=== PATIENT | female | born 1970 | race Hispanic/Latino ===

== ENCOUNTER 2017-08-26 16:46 | Emergency (ER) | payer BC ==
[2017-08-26 16:46] VITALS: BMI 26.7
[2017-08-26] MEDS ORDERED: Sodium Chloride 0.9% 1,000 ML IV STA (17:31)
--- NOTE | 2017-08-26 17:34 | ED PDOC ---
HPI: Abdomen Time Seen by Provider: 08/26/17 17:31 Chief Complaint (Nursing): Abdominal Pain Chief Complaint (Provider): abdominal pain History Per: Patient (46 y/o female here with abdominal pain albert-umbilical today after eating spread today. Patient forced herself to vomit. Notes mild improvement of abdominal pain since arriving to ED. Has had similar episodic abdominal pain in past over many years. Has had endoscopy noting mild reflux/ gastritis. Has had cholecystectomy for treatment of pain (gallbladder sludge). Otherwise has had Csxn/appendectomy in past. ) Past Medical History Reviewed: Historical Data, Nursing Documentation, Vital Signs Vital Signs: Last Vital Signs Temp 98 F 08/26/17 19:16 Pulse 72 08/26/17 19:16 Resp 20 08/26/17 19:16 BP 110/71 08/26/17 19:16 Pulse Ox 99 08/28/17 18:00 - Medical History PMH: Hypothyroidism, Pancreatitis Denies: Chronic Kidney Disease - Surgical History Surgical History: Appendectomy, - Family History Family History: States: No Known Family Hx - Home Medications Home Medications: Ambulatory Orders Medication Instructions Recorded Levothyroxine [Synthroid] 112 mcg PO DAILY 08/04/16 Multivit/Folic Acid/I 0 mg PO DAILY 08/04/16 [] Ursodiol 500 mg PO BID 08/04/16 Docusate Sodium [Colace] 100 mg PO BID #20 capsule 08/26/17 Phosphate Enema [Fleet Enema 135 135 ml RC ONCE PRN #1 nma 08/26/17 Ml] - Allergies Allergies/Adverse Reactions: Allergies Allergy/AdvReac Type Severity Reaction Status Date / Time Sulfa (Sulfonamide Allergy SWELLING Verified 08/26/17 16:55 Antibiotics) Review of Systems ROS Statement: Except As Marked, All Systems Reviewed And Found Negative Gastrointestinal: Positive for: Abdominal Pain Physical Exam - Reviewed Nursing Documentation Reviewed: Yes Vital Signs Reviewed: Yes - Physical Exam Appears: Positive for: Well, Non-toxic, No Acute Distress Head Exam: Positive for: ATRAUMATIC, NORMAL INSPECTION, NORMOCEPHALIC Skin: Positive for: Normal Color, Warm, DRY Eye Exam: Positive for: EOMI, Normal appearance, PERRL ENT: Positive for: Normal ENT Inspection Neck: Positive for: Normal, Painless ROM Cardiovascular/Chest: Positive for: Regular Rate, Rhythm Respiratory: Positive for: CNT, Normal Breath Sounds Gastrointestinal/Abdominal: Positive for: Normal Exam, Bowel Sounds ( hyperactive bowel sounds normal pitch), Soft Back: Positive for: Normal Inspection Extremity: Positive for: Normal ROM Neurologic/Psych: Positive for: Alert, Oriented - Laboratory Results Result Diagrams: 08/26/17 17:35 08/26/17 17:35 Urine POC: Negative - ECG O2 Sat by Pulse Oximetry: 99 - Progress ED Course And Treament: pepcid 20 mg iv x 1 dose reglan 10 mg i vx 1 dose NS 1 liter wid eopen xry obstructive series: no air fluid levels; ? moderate stool noted throughout Disposition - Clinical Impression Clinical Impression: Abdominal pain - Patient ED Disposition Is Patient to be Admitted: No - Disposition Referrals: Jayme Olmstead MD [Staff Provider] - Disposition: Routine/Home Disposition Time: 19:17 Condition: FAIR Prescriptions: Docusate Sodium [Colace] 100 mg PO BID #20 capsule Phosphate Enema [Fleet Enema 135 Ml] 135 ml RC ONCE PRN #1 nma PRN Reason: Constipation Instructions: Constipation (GEN), High Fiber Diet (ED) Forms: [employer] (Turkmen)
[2017-08-26 17:48] LABS: BASO # 0.1 K/uL (0.0-0.2); BASO % 0.8 % (0.0-2.0); EOS # 0.4 K/uL (0.0-0.7); HEMOGLOBIN 13.4 g/dL (12.0-16.0); LYMPH # 2.4 K/uL (1.0-4.3); LYMPH % 19.3 % (20.0-40.0); MEAN CELL VOLUME 90.4 fl (81.0-99.0); MEAN CORPUSCULAR HGB CONC 33.2 g/dL (33.0-37.0); MEAN PLATELET VOLUME 7.8 fl (7.2-11.7); MONO # 1.1 K/uL (0.0-0.8); MONO % 8.8 % (0.0-10.0); NEUT # 8.4 K/uL (1.8-7.0); NEUT % 68.1 % (50.0-75.0); RBC 4.47 Mil/uL (3.80-5.20); RED CELL DISTRIBUTION WIDTH 13.1 % (11.5-14.5); WHITE BLOOD COUNT 12.3 K/uL (4.8-10.8)
[2017-08-26 17:59] LABS: ALB/GLOB RATIO 1.3 (1.0-2.1); ALBUMIN 4.2 g/dL (3.5-5.0); ALT/SGPT 74 U/L (9-52); AST/SGOT 104 U/L (14-36); BLOOD UREA NITROGEN 15 mg/dl (7-17); CALCIUM 9.3 mg/dL (8.4-10.2); GFR AFRICAN-AMERICAN > 60; GFR NON-AFRICAN AMERICAN > 60; LIPASE 124 U/L (23-300); SQUAMOUS EPITHIAL 3 /hpf (0-5); URINE BACTERIA FEW (<OCC); URINE BILIRUBIN NEGATIVE (NEGATIVE); URINE BLOOD NEGATIVE (NEGATIVE); URINE CLARITY SLIGHTY-CLOUDY (Clear); URINE COLOR YELLOW (YELLOW); URINE GLUCOSE (UA) NEG (Normal); URINE LEUKOCYTE ESTERASE NEG Leu/uL (Negative); URINE NITRATE NEGATIVE (NEGATIVE); URINE PROTEIN NEGATIVE (NEGATIVE); URINE UROBILINOGEN 0.2-1.0 mg/dL (0.2-1.0)
[2017-08-26 19:17] VITALS: BP 110/71; PULSE 72; RESP 20; TEMP 98
--- NOTE | 2017-08-27 11:13 | RAD ---
PROCEDURE: Radiographs of the chest and abdomen (obstructive series) HISTORY: abdominal pain COMPARISON: No prior. TECHNIQUE: AP radiograph of the chest, with upright and supine radiographs of the abdomen. FINDINGS: CHEST: Lungs: Clear. Cardiovascular: Normal size heart. No pulmonary vascular congestion. Pleura: No pleural fluid. No pneumothorax. Other findings: None. ABDOMEN AND PELVIS: Bowel: Unremarkable bowel gas pattern. No evidence of mechanical obstruction. Free air: None. Bones: Unremarkable. Other findings: None. IMPRESSION: Unremarkable radiographs of chest and abdomen. No evidence of mechanical bowel obstruction.
[2017-08-28 18:00] VITALS: O2SAT 99
== END 2017-08-26 19:17 | disposition home or self-care (01) ==
LOC: H.ER 16:46
DX: R10.9 Unspecified abdominal pain (principal); K85.90 Acute pancreatitis without necrosis or infection, unspecified; E03.9 Hypothyroidism, unspecified
CPT/HCPCS: 74022; 80053; 81003; 81025; 83690; 85025; 87086; 96361; 96374; 96375; 99283; J2765; J7040

== ENCOUNTER 2017-10-08 23:56 | Emergency (ER) | payer BC ==
[2017-10-08 23:56] VITALS: BMI 26.7
[2017-10-09 00:01] VITALS: RESP 16; TEMP 98
[2017-10-09] MEDS ORDERED: Sodium Chloride 0.9% 1,000 ML IV STA (00:35)
--- NOTE | 2017-10-09 00:49 | ED PDOC ---
HPI: Abdomen Time Seen by Provider: 10/09/17 00:27 Chief Complaint (Nursing): GI Problem Chief Complaint (Provider): GI Problem History Per: Patient History/Exam Limitations: no limitations Onset/Duration Of Symptoms: Hrs (prior to arrival) Current Symptoms Are (Timing): Still Present Additional Complaint(s): 47 year old female with a past medical history of hypothyroidism and a cholecystectomy presents to the ED complaining of nausea, vomiting and diarrhea , onset today. Patient reports 4-5 episodes of vomiting and profuse watery diarrhea. States that she is unable to keep down anything, even Gatorade, and is now vomiting bile. Denies fever, chills, and abdominal pain. PMD: [facility] Past Medical History Reviewed: Historical Data, Nursing Documentation, Vital Signs Vital Signs: Last Vital Signs Temp 98 F 10/08/17 23:58 Pulse 104 H 10/09/17 05:50 Resp 16 10/09/17 05:50 BP 126/74 10/09/17 05:50 Pulse Ox 98 10/09/17 06:39 - Medical History PMH: Hypothyroidism, Pancreatitis Denies: Chronic Kidney Disease - Surgical History Surgical History: Appendectomy, Cholecystectomy, - Family History Family History: States: Unknown Family Hx - Home Medications Home Medications: Ambulatory Orders Medication Instructions Recorded Levothyroxine [Synthroid] 112 mcg PO DAILY 08/04/16 Multivit/Folic Acid/I 0 mg PO DAILY 08/04/16 [] Ursodiol 500 mg PO BID 08/04/16 Docusate Sodium [Colace] 100 mg PO BID #20 capsule 08/26/17 Phosphate Enema [Fleet Enema 135 135 ml RC ONCE PRN #1 nma 08/26/17 Ml] Ondansetron [Zofran] 4 mg PO Q8H #12 tab 10/09/17 - Allergies Allergies/Adverse Reactions: Allergies Allergy/AdvReac Type Severity Reaction Status Date / Time Sulfa (Sulfonamide Allergy SWELLING Verified 10/08/17 23:58 Antibiotics) Review of Systems ROS Statement: Except As Marked, All Systems Reviewed And Found Negative Constitutional: Negative for: Fever, Chills Gastrointestinal: Positive for: Nausea, Vomiting, Diarrhea (profuse watery). Negative for: Abdominal Pain Physical Exam - Reviewed Nursing Documentation Reviewed: Yes Vital Signs Reviewed: Yes - Physical Exam Appears: Positive for: Non-toxic, No Acute Distress Head Exam: Positive for: ATRAUMATIC, NORMOCEPHALIC Skin: Positive for: Normal Color, Warm, Dry Eye Exam: Positive for: EOMI, Normal appearance, PERRL Neck: Positive for: Normal, Painless ROM, Supple Cardiovascular/Chest: Positive for: Regular Rate, Rhythm. Negative for: Murmur Respiratory: Positive for: Normal Breath Sounds. Negative for: Respiratory Distress Gastrointestinal/Abdominal: Positive for: Normal Exam, Soft. Negative for: Tenderness Back: Positive for: Normal Inspection. Negative for: L CVA Tenderness, R CVA Tenderness Extremity: Positive for: Normal ROM. Negative for: Deformity Neurologic/Psych: Positive for: Alert, Oriented. Negative for: Motor/Sensory Deficits - Laboratory Results Result Diagrams: 10/09/17 05:10 10/09/17 05:10 - ECG O2 Sat by Pulse Oximetry: 98 (RA) Pulse Ox Interpretation: Normal Medical Decision Making Medical Decision Making: Time: 00:35 Impression: gastroenteritis Initial Plan: --Zofran Inj 4 mg IM --Normal Saline IV 1,000 mls/hr --CMP --Lipase --Urine dip --Urine preg --CBC with differentials --Ativan .5 mg IVP 0700 Hr still mildly elevated but patient very anxious about child at home, states shes feeling better, no longer nauseated. instructed to rest, hydrate, and recheck pulse at home, if >120, told to return to ER, or for any other concerning symptoms. dX: viral GE Scribe Attestation: Documented by Deepa Fuller, acting as a scribe for Bret Weathers MD. Provider Scribe Attestation: All medical record entries made by the Scribe were at my direction and personally dictated by me. I have reviewed the chart and agree that the record accurately reflects my personal performance of the history, physical exam, medical decision making, and the department course for this patient. I have also personally directed, reviewed, and agree with the discharge instructions and disposition. Disposition - Clinical Impression Clinical Impression: Gastroenteritis - Disposition Referrals: Bin Davison [Outside] Disposition: Routine/Home Disposition Time: 07:00 Condition: IMPROVED Prescriptions: Ondansetron [Zofran] 4 mg PO Q8H #12 tab Instructions: Gastroenteritis (ED) Forms: [employer] Heck (Omani)
[2017-10-09] MEDS ORDERED: Sodium Chloride 0.9% 500 ML IV STA (04:29)
[2017-10-09 05:16] LABS: BASO # 0.1 K/uL (0.0-0.2); BASO % 0.4 % (0.0-2.0); EOS # 0.5 K/uL (0.0-0.7); EOS % 3.4 % (0.0-4.0); HEMOGLOBIN 14.8 g/dL (12.0-16.0); LYMPH # 0.6 K/uL (1.0-4.3); LYMPH % 4.3 % (20.0-40.0); MEAN CELL VOLUME 90.2 fl (81.0-99.0); MEAN CORPUSCULAR HEMOGLOBIN 29.1 pg (27.0-31.0); MEAN CORPUSCULAR HGB CONC 32.2 g/dL (33.0-37.0); MONO # 0.6 K/uL (0.0-0.8); MONO % 4.3 % (0.0-10.0); NEUT # 12.5 K/uL (1.8-7.0); NEUT % 87.6 % (50.0-75.0); PLATELET COUNT 300 K/uL (130-400); RBC 5.08 Mil/uL (3.80-5.20); WHITE BLOOD COUNT 14.3 K/uL (4.8-10.8)
[2017-10-09 05:24] LABS: ALB/GLOB RATIO 1.1 (1.0-2.1); ALBUMIN 4.6 g/dL (3.5-5.0); ALT/SGPT 61 U/L (9-52); AST/SGOT 33 U/L (14-36); BLOOD UREA NITROGEN 13 mg/dl (7-17); GFR AFRICAN-AMERICAN > 60; GFR NON-AFRICAN AMERICAN > 60; LIPASE 81 U/L (23-300)
[2017-10-09 05:51] VITALS: BP 126/74; PULSE 104
[2017-10-09 06:18] LABS: SQUAMOUS EPITHIAL 1 /hpf (0-5); URINE BILIRUBIN NEGATIVE (NEGATIVE); URINE BLOOD NEGATIVE (NEGATIVE); URINE CLARITY SLIGHTY-CLOUDY (Clear); URINE COLOR YELLOW (YELLOW); URINE GLUCOSE (UA) NEG (Normal); URINE LEUKOCYTE ESTERASE NEG Leu/uL (Negative); URINE NITRATE NEGATIVE (NEGATIVE); URINE PROTEIN NEGATIVE (NEGATIVE); URINE UROBILINOGEN 0.2-1.0 mg/dL (0.2-1.0)
[2017-10-09 06:38] VITALS: O2SAT 98
[2017-10-09 07:31] LABS: EOSINOPHIL 5 % (0-7); LYMPHOCYTE 6 % (20-50); MONOCYTE 4 % (0-10); NEUTROPHIL 85 % (42-75); PLATELET ESTIMATE NORMAL (NORMAL); TOTAL CELLS COUNTED 100
== END 2017-10-09 07:15 | disposition home or self-care (01) ==
LOC: H.ER 23:56
DX: K52.9 Noninfective gastroenteritis and colitis, unspecified (principal); E03.9 Hypothyroidism, unspecified
CPT/HCPCS: 80053; 81003; 81025; 83690; 85025; 96361; 96374; 96375; 99283; J2060; J2405; J7040

== ENCOUNTER 2018-03-06 19:14 | Emergency (ER) | payer BC ==
[2018-03-06 19:14] VITALS: BMI 26.7
[2018-03-06 19:38] VITALS: RESP 18; O2SAT 100
--- NOTE | 2018-03-06 21:20 | ED PDOC ---
Lower Extremity Pain/Injury Time Seen by Provider: 03/06/18 21:10 Chief Complaint (Nursing): Lower Extremity Problem/Injury Chief Complaint (Provider): left knee swelling History Per: Patient History/Exam Limitations: no limitations Onset/Duration Of Symptoms: Days (1) Current Symptoms Are (Timing): Still Present Additional Complaint(s): 47 y/o female presents for evaluation of redness/swelling to area of left knee x 1 day. Patient reports history of varicose veins; was evaluated by her PMD today and sent to ED for an u/s for a possible thrombophlebitis. DEnies fever, nausea/vomiting, chest pain, shortness of breath, palpitations, calf tenderness , recent travel, OCP use. Ibuprofen taken prior to arrival. Past Medical History Reviewed: Historical Data, Nursing Documentation, Vital Signs Vital Signs: Last Vital Signs Temp 98.7 F 03/06/18 19:34 Pulse 67 03/06/18 19:34 Resp 18 03/06/18 19:34 BP 116/69 03/06/18 19:34 Pulse Ox 100 03/06/18 19:34 - Medical History PMH: Hypothyroidism, Pancreatitis Denies: Chronic Kidney Disease - Surgical History Surgical History: Appendectomy, Cholecystectomy, - Family History Family History: States: Unknown Family Hx - Home Medications Home Medications: Ambulatory Orders Medication Instructions Recorded Levothyroxine [Synthroid] 112 mcg PO DAILY 08/04/16 Multivit/Folic Acid/I 0 mg PO DAILY 08/04/16 [] Ursodiol 500 mg PO BID 08/04/16 Docusate Sodium [Colace] 100 mg PO BID #20 capsule 08/26/17 Phosphate Enema [Fleet Enema 135 135 ml RC ONCE PRN #1 nma 08/26/17 Ml] Ondansetron [Zofran] 4 mg PO Q8H #12 tab 10/09/17 Amoxicillin/Clavulanate [Augmentin 1 tab PO Q12 #13 tab 03/07/18 875 MG-125 MG] - Allergies Allergies/Adverse Reactions: Allergies Allergy/AdvReac Type Severity Reaction Status Date / Time Sulfa (Sulfonamide Allergy SWELLING Verified 03/06/18 19:34 Antibiotics) Review of Systems ROS Statement: Except As Marked, All Systems Reviewed And Found Negative Musculoskeletal: Positive for: Leg Pain Physical Exam - Reviewed Nursing Documentation Reviewed: Yes Vital Signs Reviewed: Yes - Physical Exam Appears: Positive for: Well, Non-toxic, No Acute Distress Head Exam: Positive for: ATRAUMATIC, NORMAL INSPECTION, NORMOCEPHALIC Cardiovascular/Chest: Positive for: Regular Rate, Rhythm Respiratory: Positive for: Normal Breath Sounds Pulses-Dorsalis Pedis (L): 2+ Pulses-Dorsalis Pedis (R): 2+ Pulses-Post. Tibialis (L): 2+ Pulses-Post. Tibialis (R): 2+ Extremity: Positive for: Normal ROM, Swelling (area of swelling, erythema, tenderness to medial aspect left knee. FROM. Distal NV, motor intact). Negative for: Calf Tenderness Neurologic/Psych: Positive for: Alert, Oriented. Negative for: Motor/Sensory Deficits - Laboratory Results Result Diagrams: 03/06/18 23:16 03/06/18 23:16 - ECG O2 Sat by Pulse Oximetry: 100 - Progress ED Course And Treament: labs, u/s EXAM: US Duplex Left Lower Extremity Veins EXAM DATE/TIME: Examination ordered 03/06/2018 9:17 PM. Image number total count reviewed 33 CLINICAL HISTORY: The patient is 47 years old and is female; Signs and symptoms; Varicose veins of lower extremities; With pain; Additional info: Anterior area of redness/swelling to knee Facility exam id and description: [email or web address] duplex lower extrm vein left TECHNIQUE: Real-time duplex ultrasound scan of the left lower extremity veins integrating B -mode twodimensional vascular structure, Doppler spectral analysis, color flow Doppler imaging and compression. COMPARISON: No relevant prior studies available. FINDINGS: DEEP VEINS: No DVT in the visualized common femoral, femoral, proximal deep femoral or popliteal veins. The veins demonstrate normal color flow, are normally compressible, with normal phasic flow and/or augmentation response. SUPERFICIAL VEINS: Thrombosed superficial varicose veins medial aspect of the knee. SOFT TISSUES: No popliteal cyst. IMPRESSION: Thrombosed superficial varicose veins medial aspect of the knee. No evidence of DVT. Patient evaluated by ED attending Dr. Arboleda; will d/c with rx Augmentin Patient educated on findings, advised warm compresses, elevation, compression, NSAIDs. Follow up PMD 2-3 days. Return precautions given Disposition - Clinical Impression Clinical Impression: Superficial phlebitis and thrombophlebitis of left leg - Patient ED Disposition Is Patient to be Admitted: No Counseled Patient/Family Regarding: Studies Performed, Diagnosis, Need For Followup, Rx Given - Disposition Disposition: Routine/Home Disposition Time: 00:07 Condition: IMPROVED Prescriptions: Amoxicillin/Clavulanate [Augmentin 875 MG-125 MG] 1 tab PO Q12 #13 tab Instructions: Varicose Veins and Other Vein Disease in the Legs, Superficial Phlebitis Forms: [employer] (Chinese)
[2018-03-06 23:19] LABS: BASO % 0.5 % (0.0-2.0); EOS # 0.3 K/uL (0.0-0.7); EOS % 3.5 % (0.0-4.0); HEMOGLOBIN 13.7 g/dL (12.0-16.0); LYMPH # 2.8 K/uL (1.0-4.3); LYMPH % 38.9 % (20.0-40.0); MEAN CELL VOLUME 90.7 fl (81.0-99.0); MEAN CORPUSCULAR HEMOGLOBIN 30.7 pg (27.0-31.0); MEAN CORPUSCULAR HGB CONC 33.9 g/dL (33.0-37.0); MEAN PLATELET VOLUME 7.9 fl (7.2-11.7); MONO # 0.7 K/uL (0.0-0.8); MONO % 9.9 % (0.0-10.0); NEUT # 3.4 K/uL (1.8-7.0); NEUT % 47.2 % (50.0-75.0); RBC 4.45 Mil/uL (3.80-5.20); RED CELL DISTRIBUTION WIDTH 12.7 % (11.5-14.5); WHITE BLOOD COUNT 7.1 K/uL (4.8-10.8)
[2018-03-06 23:28] LABS: ALB/GLOB RATIO 1.4 (1.0-2.1); ALT/SGPT 31 U/L (9-52); AST/SGOT 21 U/L (14-36); BLOOD UREA NITROGEN 13 mg/dl (7-17); CALCIUM 9.2 mg/dL (8.4-10.2); GFR AFRICAN-AMERICAN > 60; GFR NON-AFRICAN AMERICAN > 60
[2018-03-07] MEDS ORDERED: Amoxicillin-Clav 875-125 mg Tab PO STA (00:06)
[2018-03-07] MEDS ORDERED: Amoxicillin-Clav 875-125 mg Tab PO ONE (00:31)
[2018-03-07 00:41] VITALS: BP 107/70; PULSE 64; TEMP 98.4
--- NOTE | 2018-03-07 09:37 | US ---
HISTORY: anterior area of redness/swelling to knee . PRIORS: None. FINDINGS: 2-D, color and duplex Doppler analysis of the lower extremity venous circulation using routine protocol from the femoral veins through the popliteal veins. Venous compressibility: Normal. Flow and augmentation patterns: Normal. Visualized veins upper third of calf: Normal. Gunter cyst: None. . Note made of partially thrombosed superficial varicose veins medial aspect of the knee. IMPRESSION: No sonographic or Doppler evidence for DVT in left lower extremity. Note made of partially thrombosed superficial varicose veins medial aspect of the knee.
== END 2018-03-07 00:51 | disposition home or self-care (01) ==
LOC: H.ER 19:14
DX: I80.03 Phlebitis and thrombophlebitis of superficial vessels of lower extremities, bilateral (principal); I80.3 Phlebitis and thrombophlebitis of lower extremities, unspecified; E03.9 Hypothyroidism, unspecified